=== PATIENT | female | born 1975 | race Caucasian/White ===

== ENCOUNTER 2021-04-01 07:02 | Day surgery (SDC) | payer OTHER ==
[2021-04-01] MEDS ORDERED: LIDOCAINE HCL 2% 100 MG/5 ML IJ ONE (07:03)
[2021-04-01] MEDS ORDERED: Decadron 4 MG INJ IV ONE (07:03)
[2021-04-01] MEDS ORDERED: Ketamine HCl 50 MG/ML ONE (08:14)
[2021-04-01] MEDS ORDERED: DIPRIVAN 200 MG/20 ML IV ONE (08:14)
[2021-04-01] MEDS ORDERED: Lactated Ringers 1,000 ML IV ONE (09:44)
--- NOTE | 2021-04-01 10:41 | XRAY ---
Indication: Left C2-C4 MBB. Intraoperative fluoroscopy provided for 40 seconds. 2 digital spot images submitted for interpretation demonstrates posterior needle tips projecting over the expected left C2-C4 nerve roots. Correlate with intraoperative findings/report.
--- NOTE | 2021-04-01 11:42 | XRAY ---
40 seconds fluoroscopy time in surgery for left C2-C4 MBB.
== END 2021-04-01 09:05 | disposition home or self-care (01) ==
LOC: SDC-PAIN 07:02
PROVIDERS: ATTEND Psychiatry & Neurology Pain Medicine
DX: M47.812 Spondylosis without myelopathy or radiculopathy, cervical region (principal); E11.9 Type 2 diabetes mellitus without complications; Z79.899 Other long term (current) drug therapy
CPT/HCPCS: 64490; 64491; 72040; 77002; 82947; J1100; J2704